=== PATIENT | male | born 1965 | race American Indian/Alaskan Native ===

== ENCOUNTER 2016-06-29 10:32 | Outpatient (CLI) | payer OTHER ==
--- NOTE | 2016-06-29 10:48 | XRay Report ---
ROUTINE CHEST, TWO VIEWS: HISTORY: Positive PPD. The trachea, heart, mediastinal contour, lung aleman and bony thorax are unremarkable. IMPRESSION: Unremarkable chest x-ray.
== END 2016-06-29 10:33 | disposition home or self-care (01) ==
LOC: SPVIMAG 10:32
PROVIDERS: ATTEND Internal Medicine
DX: R76.11 Nonspecific reaction to tuberculin skin test without active tuberculosis (principal)
CPT/HCPCS: 71020

== ENCOUNTER 2017-07-17 10:43 | Outpatient (CLI) | payer OTHER ==
--- NOTE | 2017-07-19 13:00 | XRay Report ---
CHEST TWO VIEWS: 07/17/17 10:43:00 CLINICAL: History of positive PPD test. COMPARISON: 06/29/16 FINDINGS: Normal heart and pulmonary vasculature. The lungs are normally expanded and clear.The bones and soft tissues are unremarkable. IMPRESSION: Normal chest.
== END 2017-07-17 10:44 | disposition home or self-care (01) ==
LOC: SPVIMAG 10:43
PROVIDERS: ATTEND Internal Medicine
DX: R76.11 Nonspecific reaction to tuberculin skin test without active tuberculosis (principal)
CPT/HCPCS: 71046

== ENCOUNTER 2018-07-18 08:50 | Outpatient (CLI) | payer BC ==
--- NOTE | 2018-07-18 09:51 | XRay Report ---
ROUTINE CHEST, TWO VIEWS: Positive PPD test. PA and lateral views demonstrate the heart and mediastinal contour to be of normal size and shape. The lungs are clear and fully expanded and the soft tissues and bony structures are normal. There is no evidence of tuberculosis and there is no change compared to prior examination on July 17, 2017. IMPRESSION: Normal study.
== END 2018-07-18 08:51 | disposition home or self-care (01) ==
LOC: SPVIMAG 08:50
PROVIDERS: ATTEND Internal Medicine
DX: R76.11 Nonspecific reaction to tuberculin skin test without active tuberculosis (principal)
CPT/HCPCS: 71046

== ENCOUNTER 2019-07-22 10:10 | Outpatient (CLI) | payer BC ==
--- NOTE | 2019-07-24 12:50 | XRay Report ---
CHEST 2 VIEWS INDICATION / CLINICAL INFORMATION: ABNORMAL REACTION TO TB TEST. COMPARISON: 07/18/2018 FINDINGS: SUPPORT DEVICES: None. HEART / MEDIASTINUM: No significant abnormality. LUNGS / PLEURA: No significant pulmonary or pleural abnormality. No pneumothorax. ADDITIONAL FINDINGS: No significant additional findings. IMPRESSION: No significant abnormality or interval change from 07/18/2018. No evidence of tuberculosis on this exa m Signer Name: Hector Soriano MD FACR Signed: 07/24/2019 12:46 PM Workstation Name: [id number]
== END 2019-07-22 10:11 | disposition home or self-care (01) ==
LOC: SPVIMAG 10:10
PROVIDERS: ATTEND Internal Medicine
DX: R76.11 Nonspecific reaction to tuberculin skin test without active tuberculosis (principal)
CPT/HCPCS: 71046